=== PATIENT | male | born 1990 | race Caucasian/White ===

== ENCOUNTER 2018-07-19 08:46 | Emergency (ER) | payer MEDICAID ==
[2018-07-19 08:46] VITALS: BMI 21.1
[2018-07-19 08:58] VITALS: RESP 18
[2018-07-19 09:52] LABS: BASO % 0.4 % (0.0-2.0); EOS % 0.2 % (0.0-4.0); LYMPH # 0.7 K/uL (1.0-4.3); LYMPH % 17.3 % (20.0-40.0); MEAN CORPUSCULAR HEMOGLOBIN 32.7 pg (27.0-31.0); MEAN CORPUSCULAR HGB CONC 35.2 g/dL (33.0-37.0); MEAN PLATELET VOLUME 8.3 fL (7.2-11.7); MONO # 0.4 K/uL (0.0-0.8); MONO % 9.3 % (0.0-10.0); NEUT # 3.2 K/uL (1.8-7.0); NEUT % 72.8 % (50.0-75.0); RBC 5.45 Mil/uL (4.40-5.90); RED CELL DISTRIBUTION WIDTH 13.4 % (11.5-14.5); WHITE BLOOD COUNT 4.3 K/uL (4.8-10.8)
[2018-07-19 09:56] LABS: HEMOGLOBIN 17.8 g/dL (12.0-18.0); MEAN CELL VOLUME 92.8 fL (80.0-94.0)
[2018-07-19 10:06] LABS: ALB/GLOB RATIO 1.4 (1.0-2.1); ALBUMIN 5.1 g/dL (3.5-5.0); ALT/SGPT 26 U/L (21-72); AST/SGOT 30 U/L (17-59); BLOOD UREA NITROGEN 11 mg/dL (9-20); CALCIUM 10.2 mg/dl (8.6-10.4); GFR NON-AFRICAN AMERICAN > 60
--- NOTE | 2018-07-19 10:10 | C.PDOC ---
History Of Present Illness 27-year-old male, PMHx includes HIV (diagnosed 11/15), presents to the emergency department complaining of feeling unwell x3 weeks. Patient states he has a productive cough for the past week, associated with pleuritic pain, nausea/vom iting and diarrhea. He admits to chills and occasional shortness of breath. Patient notes he has bot been able to follow up in clinic and is not on any medications due to insurance issues. Time Seen by Provider: 07/19/18 09:02 Chief Complaint (Nursing): Chest Pain History Per: Patient History/Exam Limitations: no limitations Current Symptoms Are (Timing): Still Present Past Medical History Reviewed: Historical Data, Nursing Documentation, Vital Signs Vital Signs: Last Vital Signs Temp 98.2 F 07/19/18 08:54 Pulse 98 H 07/19/18 08:54 Resp 18 07/19/18 08:54 BP 127/86 07/19/18 08:54 Pulse Ox 99 07/19/18 08:54 - Medical History PMH: Asthma (childhood asthma), HIV Denies: Depression - [facility] Procedures DPT ADMINISTRATION (06/01/13) OTHER SKIN & SUBQ I D (06/03/13) Family History: States: No Known Family Hx - Social History Hx Tobacco Use: Yes Hx Alcohol Use: Yes Hx Substance Use: Yes - Immunization History Hx Tetanus Toxoid Vaccination: No Hx Influenza Vaccination: No Hx Pneumococcal Vaccination: No Review Of Systems Cardiovascular: Positive for: Chest Pain Respiratory: Positive for: Cough, Sputum Gastrointestinal: Positive for: Nausea, Vomiting, Diarrhea. Negative for: A bdominal Pain Musculoskeletal: Negative for: Back Pain Physical Exam - Physical Exam Appears: Non-toxic, No Acute Distress Skin: Normal Color, Warm, Dry, No Rash Head: Atraumatic, Normacephalic Eye(s): bilateral: Normal Inspection, PERRL, EOMI Nose: Normal Oral Mucosa: Moist Lips: Normal Appearing Neck: Normal ROM Cardiovascular: Rhythm Regular, No Murmur Respiratory: Normal Breath Sounds, No Accessory Muscle Use Gastrointestinal/Abdominal: Soft, No Tenderness, No Guarding, No Rebound Back: Normal Inspection Extremity: Normal ROM Neurological/Psych: Oriented x3, Normal Speech ED Course And Treatment - Laboratory Results Result Diagrams: 07/19/18 09:45 07/19/18 09:44 O2 Sat by Pulse Oximetry: 99 Pulse Ox Interpretation: Normal (RA) Progress Note: Bloodwork, Chest X-Ray and UA ordered and reviewed. Disposition Counseled Patient/Family Regarding: Studies Performed, Diagnosis, Need For Foll owup - Disposition Referrals: [facility] [Outside] [facility] [Outside] Disposition: HOME/ ROUTINE Disposition Time: 13:00 Condition: STABLE Additional Instructions: FOLLOW UP HIV CLINIC SOON POSSIBLE RETURN TO ER IF YOUR SYMPTOMS RETURN/WORSEN Prescriptions: Ondansetron [Zofran Odt] 4 mg PO Q8 PRN #12 odt PRN Reason: Nausea/Vomiting Instructions: HIV/AIDS (DC) Forms: Work in Field ([place]) Print Language: [place] CITIZEN - Clinical Impression Clinical Impression: HIV disease - Scribe Statement The provider has reviewed the documentation as recorded by the Scribe (Mildred Brock) Provider Attestation: All medical record entries made by the Scribe were at my direction and personally dictated by me. I have reviewed the chart and agree that the record accurately reflects my personal performance of the history, physical exam, medical decision making, and the department course for this patient. I have also personally directed, reviewed, and agree with the discharge instructions and disposition.
[2018-07-19 10:18] LABS: CK-MB 0.91 ng/mL (0.0-3.38)
--- NOTE | 2018-07-19 10:37 | RAD ---
HISTORY: cough COMPARISON: No prior. TECHNIQUE: Chest PA and lateral FINDINGS: LUNGS: No focal consolidation. Probable 3 mm right lower lobe calcified granuloma. Please note that chest x-ray has limited sensitivity for the detection of pulmonary masses. PLEURA: No significant pleural effusion identified. No definite pneumothorax. CARDIOVASCULAR: The cardiomediastinal silhouette appears within normal limits of size. No atherosclerotic calcification present. OSSEOUS STRUCTURES: No acute osseous abnormality identified. VISUALIZED UPPER ABDOMEN: Unremarkable. OTHER FINDINGS: None. IMPRESSION: No focal consolidation, significant pleural effusion, or definite pneumothorax identified.
[2018-07-19 10:40] LABS: SQUAMOUS EPITHIAL < 1 /hpf (0-5); URINE BILIRUBIN NEGATIVE (NEGATIVE); URINE BLOOD NEGATIVE (NEGATIVE); URINE CLARITY Clear (Clear); URINE COLOR Yellow (YELLOW); URINE GLUCOSE (UA) NORMAL (Normal); URINE LEUKOCYTE ESTERASE NEG Leu/uL (Negative); URINE PROTEIN NEGATIVE (NEGATIVE)
[2018-07-19 11:47] VITALS: BP 127/77; PULSE 83; TEMP 98.3
[2018-07-19 13:03] VITALS: O2SAT 99
--- NOTE | 2018-07-22 00:03 | CARD ---
APPROVED REPORT Date of service: 07/19/2018 EKG Measurement Heart [id number] <Conclusion> Normal sinus rhythm with sinus arrhythmia Possible Left atrial enlargement Borderline ECG
== END 2018-07-19 13:20 | disposition home or self-care (01) ==
LOC: C.ER 08:46
DX: B20 Human immunodeficiency virus [HIV] disease (principal)